=== PATIENT | male | born 1965 | race Caucasian/White ===

== ENCOUNTER 2023-07-09 05:51 | Day surgery (SDC) | payer OTHER, SELFPAY ==
[2023-06-19 13:32] VITALS: BMI 33.9
[2023-06-22 09:30] VITALS: BMI 33.7
[2023-07-09 06:19] VITALS: BP 149/99; PULSE 70; RESP 20; TEMP 36.8; O2SAT 98
[2023-07-09] MEDS: LACTATED RINGERS 1,000 ML 150 ML IV CONT (06:36)
--- NOTE | 2023-07-09 07:06 | WPDHPUPDATE1 ---
History and Physical Update Update Date/Time: 07/09/23 07:06 History and Physical has been reviewed, including an updated exam of the patient. There are NO changes in the patient's condition. Risks, benefits, and alternatives have been discussed and questions answered. Patient agrees to proceed with procedure.
--- NOTE | 2023-07-09 07:11 | P.PNAN_ITS ---
Anes - Initial Pre Proc Eval Procedure: Operation Date: 07/09/23 07:30 Proposed Procedures p Esophagogastroduodenoscopy - Mark Odonnell MD s Colonoscopy - Mark Odonnell MD Date/Time: 07/09/23 07:11 Surgeon: Mark Odonnell MD Pre Op Diagnosis: History colon polyps,other diseases of pharynx, Patient Data Age: 57 Gender: M Height: 1.88 m Weight: 113.6 kg Last Vital Signs Temp 36.8 C 07/09/23 06:19 Pulse 70 07/09/23 06:19 Resp 20 07/09/23 06:19 BP 149/99 H 07/09/23 06:19 Pulse Ox 98 07/09/23 06:19 O2 Del Method Room Air 07/09/23 06:19 Allergies Allergy/AdvReac Type Severity Reaction Status Date / Time No Known Allergies Allergy Verified 07/09/23 06:18 Home Medications Medication Instructions Recorded Confirmed Type aspirin 81 mg tablet,delayed 81 mg PO DAILY 06/17/23 07/09/23 History release (Adult Aspirin Regimen) carvedilol 25 mg tablet 25 mg PO Q12H 06/17/23 07/09/23 History rosuvastatin 40 mg tablet 40 mg PO DAILY 06/17/23 07/09/23 History sacubitril 49 mg-valsartan 51 mg 1 tablet PO BID 06/17/23 07/09/23 History tablet (Entresto) sodium,potassium,mag sulfates 17.5 See Rx Instructions PO .COMPLEX 06/19/23 07/09/23 Rx gram-3.13 gram-1.6 gram oral soln #354 mL (Suprep Bowel Prep Kit) Patient hx anesthesia problems: none Family hx anesthesia problems: none Results Review: All pre-operative results and documents have been reviewed as part of the pre- operative evaluation. [facility] Past Medical History Medical History Belching Early satiety Heartburn Hx of adenomatous colonic polyps Throat irritation Social History Social History Smoking status: Never smoker Alcohol intake: current Substance use: never Substance use type: does not use Living arrangements: with family Spiritual care concerns: No Anes - Eval Final PreProcedure Day of Procedure 07/09/23 07:11 Patient weight: obese Heart: regular rate and rhythm Lungs: clear to auscultation Airway: Mallampati scale class II Neurological: alert and oriented Last oral intake: >/= 8 hours ASA classification: III Emergent: no Anesthetic plan: proceed Anesthesia type and monitoring: general GIVS and standard monitoring Results Review: All pre-operative results and documents have been reviewed as part of the pre- operative evaluation. Informed Consent: The patient's anesthetic plan and its attendant risks and benefits were discussed with the patient/family/POA. Questions were solicited and answers provided to the satisfaction of the patient/family/POA.
[2023-07-09 07:55] VITALS: BP 93/49; PULSE 77; RESP 20; O2SAT 91
[2023-07-09 08:05] VITALS: BP 103/63; PULSE 70; RESP 18; O2SAT 96
--- NOTE | 2023-07-09 08:11 | WPDANESPN ---
Anes - Prog Note Post-Op Date/Time: 07/09/23 08:11 Cardiovascular status: normal Respiratory status: normal Airway patency: baseline Mental status: baseline Post-Op hydration status: normal Vital Signs: Last Vital Signs Temp 36.8 C 07/09/23 06:19 Pulse 70 07/09/23 08:05 Resp 18 07/09/23 08:05 BP 103/63 07/09/23 08:05 Pulse Ox 96 07/09/23 08:05 O2 Del Method Room Air 07/09/23 08:05 Pain Score (VAS): 0/10 I/O: Intake & Output 07/08/23 07/09/23 07/09/23 23:59 07:59 15:59 Intake Total 200 Balance 200 Patient Feedback: Patient satisfied with anesthetic care.
[2023-07-09 08:15] VITALS: BP 119/60; PULSE 76; RESP 18; O2SAT 96
== END 2023-07-09 08:29 | disposition home or self-care (01) ==
PROVIDERS: PCP Emergency Medicine; Visit Provider Internal Medicine Gastroenterology
PROC: 0DJ08ZZ Inspection of Upper Intestinal Tract, Via Natural or Artificial Opening Endoscopic (ICD-10-PCS; CPT 43235; principal; 2023-07-09 07:30)
PROC: 0DJD8ZZ Inspection of Lower Intestinal Tract, Via Natural or Artificial Opening Endoscopic (ICD-10-PCS; CPT 45378; 2023-07-09 07:30)
DX: Z86.010 Personal history of colon polyps (principal); D12.8 Benign neoplasm of rectum; K57.30 Diverticulosis of large intestine without perforation or abscess without bleeding; K22.10 Ulcer of esophagus without bleeding; R68.81 Early satiety
CPT/HCPCS: 45385; 43235

== ENCOUNTER 2023-07-09 09:59 | Outpatient (NON) | payer OTHER, SELFPAY | END 2023-07-09 10:00 | disposition home or self-care (01) | LOC: ANHLAB 07-17 09:59 | PROVIDERS: PCP Emergency Medicine; Visit Provider Internal Medicine Gastroenterology | DX: Z86.010 Personal history of colon polyps (principal); C20 Malignant neoplasm of rectum | CPT/HCPCS: 88305; 88342 ==

== ENCOUNTER 2025-04-10 12:39 | Day surgery (SDC) | payer OTHER, SELFPAY ==
[2025-03-22 10:46] VITALS: BMI 33.4
[2025-03-28 10:40] VITALS: BMI 33.4
[2025-04-10 13:07] VITALS: BP 160/83; PULSE 72; RESP 16; TEMP 36.8; O2SAT 99; BMI 31.8
--- NOTE | 2025-04-10 13:14 | WPDANESEPPF ---
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 Patient Data Age: 59 Gender: M Height: 1.88 m Weight: 112.6 kg Last Vital Signs Temp 36.8 C 04/10/25 13:07 Pulse 72 04/10/25 13:07 Resp 16 04/10/25 13:07 BP 160/83 H 04/10/25 13:07 Pulse Ox 99 04/10/25 13:07 O2 Del Method Room Air 04/10/25 13:07 Allergies Allergy/AdvReac Type Severity Reaction Status Date / Time No Known Allergies Allergy Verified 04/10/25 13:06 Home Medications ?Medication ?Instructions ?Recorded ?Confirmed ?Type carvedilol 25 mg tablet 25 mg PO Q12H 06/17/23 04/10/25 History rosuvastatin 40 mg tablet 40 mg PO DAILY 06/17/23 04/10/25 History empagliflozin 10 mg tablet 10 mg PO DAILY 03/20/25 04/10/25 History (Jardiance) omeprazole 20 mg capsule,delayed 20 mg PO EVERY OTHER DAY 03/20/25 04/10/25 History release sacubitril 97 mg-valsartan 103 mg 1 tablet PO BID 03/20/25 04/10/25 History tablet (Entresto) spironolactone 25 mg tablet 25 mg PO DAILY 03/20/25 04/10/25 History Patient hx anesthesia problems: none Family hx anesthesia problems: none Results Review: All pre-operative results and documents have been reviewed as part of the pre-operative evaluation. [facility] Past Medical History Medical History Belching Heartburn Throat irritation Early satiety Hx of adenomatous colonic polyps Surgical History Surgical History History of skin graft Family History Family History Father Hypertension Grandparent Hypertension Grandparent Carcinoma of colon Malignant neoplasm of prostate Grandparent Hypertension Social History Social History Smoking status: Never smoker Alcohol intake: current Alcohol use details: Patient drinks 5-7 alcoholic beverages per week. Substance use: never Substance use type: does not use Do You Feel Safe in your Home?: Yes Lack of Transportation: No Lack of Food: Never True Current Housing: I Have Housing Concerned About Future Housing: No Difficulty Paying Gas/Electric Bills: No Difficulty Paying for Meds: No Currently Unemployed: No Education: High School Diploma/GED Difficulty w/ Childcare or Family Care: No Living arrangements: with family Spiritual care concerns: No Anes - Eval Final PreProcedure Day of Procedure 04/10/25 13:14 Heart: regular rate and rhythm Lungs: clear to auscultation Airway: Mallampati scale class II Neurological: alert and oriented Last oral intake: >/= 8 hours ASA classification: III Emergent: no Anesthetic plan: proceed Anesthesia type and monitoring: monitored anesthesia care Results Review: All pre-operative results and documents have been reviewed as part of the pre-operative evaluation. Informed Consent: The patient's anesthetic plan and its attendant risks and benefits were discussed with the patient/family/POA. Questions were solicited and answers provided to the satisfaction of the patient/family/POA.
[2025-04-10] MEDS: LACTATED RINGERS 1,000 ML 150 ML IV CONT (13:24)
--- NOTE | 2025-04-10 13:39 | PM.IMHP ---
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 He is here for follow-up. Review of Systems Review of Systems: All systems reviewed & are unremarkable except as noted in HPI and below PMFSH Past Medical History Medical History Belching Heartburn Throat irritation Early satiety Hx of adenomatous colonic polyps Surgical History Surgical History History of skin graft Family History Family History Father Hypertension Grandparent Hypertension Grandparent Carcinoma of colon Malignant neoplasm of prostate Grandparent Hypertension Social History Social History Smoking status: Never smoker Alcohol intake: current Alcohol use details: Patient drinks 5-7 alcoholic beverages per week. Substance use: never Substance use type: does not use Do You Feel Safe in your Home?: Yes Lack of Transportation: No Lack of Food: Never True Current Housing: I Have Housing Concerned About Future Housing: No Difficulty Paying Gas/Electric Bills: No Difficulty Paying for Meds: No Currently Unemployed: No Education: High School Diploma/GED Difficulty w/ Childcare or Family Care: No Living arrangements: with family Spiritual care concerns: No Meds Home Medications and Allergies Home Medications ?Medication ?Instructions ?Recorded ?Confirmed ?Type carvedilol 25 mg tablet 25 mg PO Q12H 06/17/23 04/10/25 History rosuvastatin 40 mg tablet 40 mg PO DAILY 06/17/23 04/10/25 History empagliflozin 10 mg tablet 10 mg PO DAILY 03/20/25 04/10/25 History (Jardiance) omeprazole 20 mg capsule,delayed 20 mg PO EVERY OTHER DAY 03/20/25 04/10/25 History release sacubitril 97 mg-valsartan 103 mg 1 tablet PO BID 03/20/25 04/10/25 History tablet (Entresto) spironolactone 25 mg tablet 25 mg PO DAILY 03/20/25 04/10/25 History Allergies Allergy/AdvReac Type Severity Reaction Status Date / Time No Known Allergies Allergy Verified 04/10/25 13:06 Vital Signs Vital Signs - 24 hr 04/10/25 13:07 Temperature 98.3 F Pulse Rate 72 Respiratory Rate 16 Blood Pressure 160/83 H Pulse Oximetry 99 Oxygen Delivery Room Air Exam Const: General: cooperative and healthy appearing Resp: Effort & Inspection: normal respiratory effort and able to speak in complete sentences Auscultation: clear to auscultation bilaterally Cardio: Rate: regular rate Rhythm: regular rhythm GI: Inspection: normal to inspection GI Palp: No No hepatosplenomegaly present Auscultation: normal bowel sounds Rectal Exam: deferred Skin: General skin exam: normal color Psych: Appearance: grossly normal Mental Status: mental status grossly normal Assessment and Plan Assessment and plan (1) Carcinoid tumor, rectal, benign: Code(s): D3A.026 - Benign carcinoid tumor of the rectum Status: Acute Assessment and Plan: The patient is deemed a good candidate for the procedure. Consent signed. Will proceed.
--- NOTE | 2025-04-10 14:14 | SUR.OPER ---
patient having difficulty waking up post anesthesia, CRNAs present and managing patient care.
[2025-04-10 14:22] VITALS: BP 173/96; PULSE 70; RESP 16; O2SAT 99
--- NOTE | 2025-04-10 14:26 | WPDANESPN ---
Anes - Prog Note Post-Op Date/Time: 04/10/25 14:26 Cardiovascular status: normal Respiratory status: normal Airway patency: baseline Mental status: baseline Post-Op hydration status: normal Vital Signs: Last Vital Signs Temp 36.8 C 04/10/25 13:07 Pulse 72 04/10/25 13:07 Resp 16 04/10/25 13:07 BP 160/83 H 04/10/25 13:07 Pulse Ox 99 04/10/25 13:07 O2 Del Method Room Air 04/10/25 13:07 Pain Score (VAS): 0 I/O: Intake & Output 04/09/25 04/10/25 04/10/25 23:59 07:59 15:59 Intake Total 0 Balance 0 Patient Feedback: Patient satisfied with anesthetic care.
[2025-04-10 14:32] VITALS: BP 161/107; PULSE 68; RESP 18; O2SAT 99
[2025-04-10 14:42] VITALS: BP 162/96; PULSE 66; RESP 18; O2SAT 100
== END 2025-04-10 14:53 | disposition home or self-care (01) ==
PROVIDERS: PCP Internal Medicine; Referring Provider Internal Medicine; Visit Provider Internal Medicine Gastroenterology
PROC: 0DJD8ZZ Inspection of Lower Intestinal Tract, Via Natural or Artificial Opening Endoscopic (ICD-10-PCS; CPT 45378; principal; 2025-04-10 14:30)
DX: Z08 Encounter for follow-up examination after completed treatment for malignant neoplasm (principal); K57.30 Diverticulosis of large intestine without perforation or abscess without bleeding; Z85.048 Personal history of other malignant neoplasm of rectum, rectosigmoid junction, and anus
CPT/HCPCS: 45378